=== PATIENT | male | born 1965 | race Caucasian/White ===

== ENCOUNTER 2017-09-05 08:25 | Inpatient (IN) | payer OTHER ==
[~2017-09-05] VITALS: Ht 177.8 cm; Wt 111.6 kg
[2017-09-05 08:25] VITALS: BP_SYST 149
--- NOTE | 2017-09-05 08:25 | NUR ---
BROUGHT BACK TO BED #8 AND REPORT GIVEN TO EUGENE
--- NOTE | 2017-09-05 08:27 | NUR ---
ER at bedside examining patient.
--- NOTE | 2017-09-05 08:30 | NUR ---
Pt presents to ER c/o "stroke-like symptoms" that occured yesterday around 0500. Pt states that he was talking to niece at dinner table when he began to drool, slur his words, and feel numbness in his L arm. Pt states that the symptoms eventually went away as the day progressed. Pt denies CP, SOB, N/V/D. pt reports 3 previous heart attacks, most recently in 2014. Pt reports medical history of HTN, HYPERLIPIDEMIA, ANXIETY, DEPRESSION but states that he does not take any meds. Pt is in no acute distress, denies pain at the moment, lung sounds clear, AOX4, NKDA.
[2017-09-05] MEDS ORDERED: ASPIRIN 81 MG TAB.CHEW PO ONE (08:45)
--- NOTE | 2017-09-05 08:50 | NUR ---
Laboratory at bedside for blood draw.
[2017-09-05] MEDS ORDERED: ASPIRIN 81 MG TAB.CHEW ONE (09:10)
--- NOTE | 2017-09-05 09:10 | NUR ---
Pt administered 162 mg of Aspirin. Pt tolerated well. Will continue to monitor.
--- NOTE | 2017-09-05 09:10 | NUR ---
Radiology at bedside for CXR.
[2017-09-05 09:11] LABS: BASOPHILS % (AUTO) 0.3 % (0.0-2.0); EOSINOPHILS # (AUTO) 0.3 K/uL (0.0-0.4); EOSINOPHILS % (AUTO) 3.3 % (0.0-4.0); HEMATOCRIT 45.3 % (36-54); HEMOGLOBIN 14.8 g/dL (14.0-18.0); LYMPHOCYTES # (AUTO) 2.7 K/uL (1.0-5.5); LYMPHOCYTES % (AUTO) 31.2 % (20.5-51.5); MEAN CORPUSCULAR HEMOGLOBIN 30 pg (27-31); MEAN CORPUSCULAR HGB CONC 33 % (32-36); MEAN CORPUSCULAR VOLUME 92 fL (79.0-98.0); MONOCYTES # (AUTO) 0.5 K/uL (0.0-1.0); MONOCYTES % (AUTO) 6.2 % (1.7-9.3); NEUTROPHILS # (AUTO) 5.1 K/uL (1.8-7.7); PLATELET COUNT (AUTO) 187 K/uL (130-430); RED BLOOD CELL COUNT(AUTO) 4.93 MIL/uL (4.2-6.2); RED CELL DISTRIBUTION WIDTH 12.3 % (9.0-15.0); WHITE BLOOD COUNT (AUTO) 8.6 K/uL (4.8-10.8)
[2017-09-05 09:14] LABS: BILIRUBIN,URINE NEGATIVE (NEGATIVE); BLOOD, URINE NEGATIVE (NEGATIVE); CLARITY/URINE CLEAR (CLEAR); COLOR,URINE YELLOW (YELLOW); GLUCOSE,URINE TRACE (NEGATIVE); KETONES,URINE NEGATIVE (NEGATIVE); LEUKOCYTE ESTERASE ,URINE NEGATIVE (NEGATIVE); NITRITE, URINE NEGATIVE (NEGATIVE); PH,URINE 5.5 (5.0-8.0); PROTEIN URINE NEGATIVE (NEGATIVE); UROBILINOGEN,URINE 0.2 (0.2-1.0)
--- NOTE | 2017-09-05 09:23 | NUR ---
EKG performed at by Farhad EID. Physician given copy of EKG for review.
[2017-09-05 09:24] LABS: CALCIUM 8.6 mg/dL (8.4-11.0); CREATININE 1.25 mg/dL (0.55-1.30); POTASSIUM 3.8 mmol/L (3.5-5.1)
--- NOTE | 2017-09-05 09:27 | NUR ---
Patient transported to radiology via wheelchair, accompanied by rad staff.
[2017-09-05 09:28] LABS: ALBUMIN 3.4 g/dL (3.4-4.8); PROTHROMBIN TIME 10.3 SECS (9.5-12.5); TOTAL BILIRUBIN 0.3 mg/dL (0.0-1.0)
--- NOTE | 2017-09-05 09:45 | NUR ---
Returned from radiology, back to [facility].
--- NOTE | 2017-09-05 10:30 | NUR ---
Dr. Jones at bedside updating pt with lab and diagnostic results.
--- NOTE | 2017-09-05 10:56 | NUR ---
ADMIT NOTE Received pt from ER to the floor with a diagnosis of tia. Admission process initiated. patient oriented to pain management, safety and call light-teach back done.
--- NOTE | 2017-09-05 11:00 | NUR ---
Patient will be admitted to care of . Admitted to tele unit. Will go to room 135. Belongings list completed. Summary report printed. Report will be given at bedside.
[2017-09-05 11:02] VITALS: BP_SYST 131
[2017-09-05] MEDS ORDERED: ONDANSETRON HCL 4 MG/2 ML VIAL IVP PRN (12:00)
[2017-09-05] MEDS ORDERED: MUPIROCIN 2% TOPICAL OINTMENT 22 GM NS PRN (12:00)
[2017-09-05] MEDS ORDERED: DOCUSATE SODIUM 100 MG CAPSULE PO PRN (12:00)
[2017-09-05] MEDS ORDERED: MORPHINE 2 MG/ML INJ. SYRINGE IVP PRN (12:00)
[2017-09-05] MEDS ORDERED: MAGNESIUM SULFATE 50 ML IV PRN (12:00)
[2017-09-05] MEDS ORDERED: ACETAMINOPHEN 325 MG TABLET PO PRN (12:00)
[2017-09-05] MEDS ORDERED: LORazepam 2 MG/ML VIAL IVP PRN (12:00)
[2017-09-05] MEDS ORDERED: ZOLPIDEM TARTRATE 5 MG TABLET PO PRN (12:00)
[2017-09-05] MEDS ORDERED: POTASSIUM CHLORIDE 20 MEQ TAB.PRT.SR PO PRN (12:00)
--- NOTE | 2017-09-05 13:00 | NUR ---
rounds was admitted with tia in room 114 a. awake alert with ivl on the r ac intact. no infiltration noted.denies any dizziness and headache at this time. no c/o numbness .resp easy and unlabored and no acute distress noted. call light within reached and knows when to call for assistance. will continue to monitor patient.
[2017-09-05] MEDS: NACL 0.9% 1,000 ML IV SCH (13:51)
--- NOTE | 2017-09-05 14:00 | NUR ---
rounds ivf started and no infiltration noted. call light within reached. sleeps at intervals.
[2017-09-05 15:00] VITALS: BP_SYST 120
--- NOTE | 2017-09-05 18:45 | NUR ---
closing notes resting comfortably in bed. no sob noted. call light within reached. no numbness noted. bed in low position
[2017-09-05 20:00] VITALS: BP_SYST 128
[2017-09-05] MEDS: HEPARIN SODIUM,PORCINE 5000 UNITS/ML VIAL SUBCUT SCH (22:11)
[2017-09-05] MEDS ORDERED: HEPARIN SODIUM,PORCINE 5000 UNITS/ML VIAL ONE (22:15)
--- NOTE | 2017-09-06 04:52 | NUR ---
CONSULT REASON NEURO FOR DOCTOR Annie LOPEZ SPOKE WITH MIGUELINA
[2017-09-06] MEDS: NACL 0.9% 1,000 ML IV SCH ×3 (05:55→22:28)
--- NOTE | 2017-09-06 06:05 | NUR ---
Closing note pt awake alert. Pt complain of right leg pain. Pt stated feel stiff or some sharp pain. 6/10 when move. non labored breathing. No distress noted. Safety precaution maintained throughout the shift. Bed in the lowest positioned, locked. Hourly rounds does, comfort needs met throughout the shift. will endorse to the day shift nurse to notify MD regarding pt's pain on the right calf.
[2017-09-06] MEDS ORDERED: FLU VACC QS 2017-18(36MOS+)/PF 0.5 ML/SYR SYRINGE I.M. PRN (06:45)
--- NOTE | 2017-09-06 06:50 | NUR ---
Pt requested to obtain flu vaccination prior to discharge
[2017-09-06 07:40] LABS: BASOPHILS % (AUTO) 0.5 % (0.0-2.0); EOSINOPHILS # (AUTO) 0.3 K/uL (0.0-0.4); EOSINOPHILS % (AUTO) 3.2 % (0.0-4.0); HEMATOCRIT 45.3 % (36-54); LYMPHOCYTES # (AUTO) 2.5 K/uL (1.0-5.5); LYMPHOCYTES % (AUTO) 26.5 % (20.5-51.5); MEAN CORPUSCULAR HEMOGLOBIN 30 pg (27-31); MEAN CORPUSCULAR HGB CONC 33 % (32-36); MEAN CORPUSCULAR VOLUME 91 fL (79.0-98.0); MONOCYTES # (AUTO) 0.5 K/uL (0.0-1.0); MONOCYTES % (AUTO) 5.7 % (1.7-9.3); NEUTROPHILS # (AUTO) 6.1 K/uL (1.8-7.7); NEUTROPHILS % (AUTO) 64.1 % (40.0-70.0); PLATELET COUNT (AUTO) 185 K/uL (130-430); RED BLOOD CELL COUNT(AUTO) 4.98 MIL/uL (4.2-6.2); RED CELL DISTRIBUTION WIDTH 12.4 % (9.0-15.0); WHITE BLOOD COUNT (AUTO) 9.4 K/uL (4.8-10.8)
--- NOTE | 2017-09-06 07:51 | NUR ---
OPENING NOTE: RECEIVED REPORT FROM NIGHT NURSE. PATIENT IS RESTING COMFORTABLY IN BED. NO SIGNS OR SYMPTOMS OF DISTRESS OR SOB. IV IS PATENT AND INFUSING. PATIENT ON ROOM AIR. PATIENT IS ALERT AND ORIENTED, ABLE TO EXPRESS NEEDS, AND ASK FOR ASSISTANCE. CALL LIGHT IN REACH, BED IN LOWEST POSITION, AND WILL CONTINUE TO MONITOR.
[2017-09-06 08:00] LABS: CREATININE 0.87 mg/dL (0.55-1.30); POTASSIUM 3.9 mmol/L (3.5-5.1)
[2017-09-06 08:32] VITALS: BP_SYST 133
[2017-09-06] MEDS: HEPARIN SODIUM,PORCINE 5000 UNITS/ML VIAL SUBCUT SCH ×2 (09:15→22:28)
--- NOTE | 2017-09-06 10:00 | NUR ---
NOTE: PATIENT IS RESTING COMFORTABLY IN BED. NO S/S OF DISTRESS OR SOB. PATIENT IS ALERT AND ORIENTED, ABLE TO EXPRESS NEEDS, AND ASK FOR ASSISTANCE. CALL LIGHT IN REACH, BED IN LOWEST POSITION, AND WILL TO MONITOR.
[2017-09-06 11:27] VITALS: BP_SYST 140
[2017-09-06 12:28] LABS: BARBITURATE, URINE NEGATIVE (NEG <=200); BENZODIAZEPINE, URINE NEGATIVE (NEG <=150); CANNABINOID, URINE POSITIVE (NEG <=50); COCAINE, URINE NEGATIVE (NEG <=150); METHAMPHETAMINES SCREEN,URINE NEGATIVE (NEG <=500); OPIATE, URINE NEGATIVE (NEG <=100); PHENCYCLIDINE SCREEN,URINE NEGATIVE (NEG <=25); UR TRICYCLIC ANTIDEPRESSANTS NEGATIVE (NEG <=300); URINE AMPHETAMINE NEGATIVE (NEG <=500); URINE METHADONE NEGATIVE (NEG <=200); URINE OXYCODONE SCREEN NEGATIVE (NEG <=100); URINE PROPOXYPHENE SCREEN NEGATIVE (NEG <=300)
--- NOTE | 2017-09-06 12:30 | NUR ---
NOTE: PATIENT IS RESTING COMFORTABLY IN BED. NO S/S OF DISTRESS OR SOB. PATIENT FAMILY IS VISITING. EATING LUNCH. NO NEEDS AT THIS TIME. CALL LIGHT IN REACH, BED IN LOWEST POSITION, AND WILL CONTINUE TO MONITOR.
--- NOTE | 2017-09-06 14:30 | NUR ---
NOTE: PATIENT IS RESTING COMFORTABLY IN BED. NO S/S OF DISTRESS OR SOB. PATIENT IS ALERT AND ORIENTED, ABLE TO EXPRESS NEEDS AND ASK FOR ASSISTANCE. PATIENT STATED THAT HE WANTS TO SHOWER, INFORMED THAT DR. SPARKS NEEDS TO GIVE THE OKAY TO BE OFF TELEMETRY FOR A DURATION. WAITING FOR CALL BACK FROM DR. SPARKS. CALL LIGHT IN REACH, BED IN LOWEST POSITION, AND WILL CONTINUE TO MONITOR.
[2017-09-06 15:28] VITALS: BP_SYST 143
--- NOTE | 2017-09-06 16:14 | NUR ---
NOTE: PATIENT IS RESTING COMFORTABLY IN BED. NO S/S OF DISTRESS OR SOB. PATIENT IS ALERT AND ORIENTED, ABLE TO EXPRESS NEEDS, AND ASK FOR ASSISTANCE. NO NEEDS EXPRESSED AT THIS TIME. CALL LIGHT IN REACH, BED IN LOWEST POSITION, AND WILL CONTINUE TO MONITOR.
--- NOTE | 2017-09-06 16:44 | NUR ---
PATIENT TAKING A SHOWER
--- NOTE | 2017-09-06 18:29 | NUR ---
CLOSING NOTE: PATIENT IS RESTING COMFORTABLY IN BED. NO S/S OF DISTRESS OR SOB. PATIENT IS ALERT AND ORIENTED, ABLE TO EXPRESS NEEDS, AND ASK FOR ASSISTANCE. ALL NEEDS MET DURING SHIFT. IV IS PATENT AND INFUSING. NO NEEDS ADDRESSED AT THIS TIME. CALL LIGHT IN REACH, BED IN LOWEST POSITION, AND WILL GIVE REPORT TO NIGHT NURSE.
--- NOTE | 2017-09-06 19:25 | NUR ---
PM SHIFT ASSESSMENT Pt A&OX4. RA, no signs of SOB or acute distress noted. IV to RAC 20G, no signs of infiltration noted. Pt educated on how to use the call light. Safety precautions in place, will continue to monitor.
[2017-09-06 20:00] VITALS: BP_SYST 127
--- NOTE | 2017-09-07 00:10 | NUR ---
Pt resting in bed. VSS. No signs of SOB or acute distress noted. Will continue to monitor.
--- NOTE | 2017-09-07 05:20 | NUR ---
Checklist done by pt for MRI to be done today.
--- NOTE | 2017-09-07 07:31 | NUR ---
ENDORSEMENT Pt care endorsed to day shift RN at bedside using nursing SBAR.
--- NOTE | 2017-09-07 08:00 | NUR ---
Paged neurologist Paged DR. JESSICA GARCIA for carotid US report
[2017-09-07 08:07] VITALS: BP_SYST 130
[2017-09-07] MEDS: HEPARIN SODIUM,PORCINE 5000 UNITS/ML VIAL SUBCUT SCH (08:10)
--- NOTE | 2017-09-07 08:20 | NUR ---
Patient complaining of left leg pain , no edema , dorsalis pedis pulse positive ,with good peripheral sensation , Dr. sravan verma
--- NOTE | 2017-09-07 08:32 | NUR ---
NEUROLOGIST, DR LOPEZ WAS CALLED RE: US CAROTID RESULT. SPOKE TO BILL
[2017-09-07 08:43] LABS: BASOPHILS % (AUTO) 0.4 % (0.0-2.0); EOSINOPHILS # (AUTO) 0.2 K/uL (0.0-0.4); EOSINOPHILS % (AUTO) 2.3 % (0.0-4.0); HEMATOCRIT 50.2 % (36-54); LYMPHOCYTES # (AUTO) 2.1 K/uL (1.0-5.5); LYMPHOCYTES % (AUTO) 23.2 % (20.5-51.5); MEAN CORPUSCULAR HEMOGLOBIN 30 pg (27-31); MEAN CORPUSCULAR HGB CONC 32 % (32-36); MEAN CORPUSCULAR VOLUME 93 fL (79.0-98.0); MONOCYTES # (AUTO) 0.5 K/uL (0.0-1.0); MONOCYTES % (AUTO) 5.9 % (1.7-9.3); NEUTROPHILS # (AUTO) 6.1 K/uL (1.8-7.7); NEUTROPHILS % (AUTO) 68.2 % (40.0-70.0); PLATELET COUNT (AUTO) 201 K/uL (130-430); RED BLOOD CELL COUNT(AUTO) 5.38 MIL/uL (4.2-6.2); RED CELL DISTRIBUTION WIDTH 12.2 % (9.0-15.0); WHITE BLOOD COUNT (AUTO) 8.9 K/uL (4.8-10.8)
[2017-09-07 08:56] LABS: CALCIUM 9.7 mg/dL (8.4-11.0); CREATININE 0.92 mg/dL (0.55-1.30); POTASSIUM 4.1 mmol/L (3.5-5.1)
--- NOTE | 2017-09-07 09:10 | NUR ---
MADE A F/U CALL TO DR LOPEZ. SPOKE TO SATINDER
--- NOTE | 2017-09-07 09:40 | NUR ---
Rounds Discussed to patient plan care result of carotid US,checklist/consent completed after explaining the test , venous Doppler for pain left calf and agreed , instructed avoid crossing legs , safety , weight gain verbalized understanding.
[2017-09-07 11:24] VITALS: BP_SYST 130
[2017-09-07] MEDS ORDERED: *LOVENOX 1MG/KG Q12H/PHARMACY XX ONE (11:30)
[2017-09-07] MEDS ORDERED: IOHEXOL 100 ML IV ONE (11:32)
--- NOTE | 2017-09-07 12:40 | NUR ---
MRI/CT angiogram of the neck completed , no sign of neurological deficit clear speech , no dizziness.
--- NOTE | 2017-09-07 13:26 | NUR ---
Dr. Mukul evrma for CT angiogram of the neck /MRI result.
[2017-09-07] MEDS: ENOXAPARIN SODIUM 100 MG/ML SYRINGE SUBCUT SCH (14:56)
--- NOTE | 2017-09-07 15:00 | NUR ---
Flu vaccine explained , risk/benefits , after effect of medication , no allergies to egg ,administered to left deltoid.
[2017-09-07 15:22] VITALS: BP_SYST 131
[2017-09-07] MEDS: MORPHINE 2 MG/ML INJ. SYRINGE IVP PRN (17:30)
--- NOTE | 2017-09-07 17:30 | NUR ---
Venous Doppler of upper extremities and jugular area completed waiting for final result , complaining of left leg pain 8/10 due pain medication given will continue to monitor ; Dr. Song in in the hospital making rounds informed regarding result MRI, CT angiogram , venous Doppler, will continue to monitor.
--- NOTE | 2017-09-07 19:15 | NUR ---
Patient resting left leg pain is better after pain medication , endorsed to RAGINI barrera to call Dr. Gilman once the final reading of Ultrasound venous Doppler of BUE and jugular vein.
[2017-09-07 20:00] VITALS: BP_SYST 121
--- NOTE | 2017-09-07 20:00 | NUR ---
AWAKE, ALERT, ORIENTED X4. IN NO APPARENT DISTRESS. VSS. DENIES PAIN AT THIS TIME. PEDAL PULSES PALPABLE, ABLE TO WIGGLE TOES, FEET WARM TO TOUCH. PLEASANT. SR.
--- NOTE | 2017-09-08 | NUR ---
DOZES ON AND OFF. ABLE TO TURN SELF WITHOUT DIFFICULTY. DENIES PAIN/SOB/DISTRESS. NO REPORT YET ON VENOUS DOPPLER SCAN.
[2017-09-08 00:28] VITALS: BP_SYST 137
[2017-09-08] MEDS: ENOXAPARIN SODIUM 100 MG/ML SYRINGE SUBCUT SCH ×2 (02:51→14:02)
--- NOTE | 2017-09-08 03:00 | NUR ---
EASILY AWAKENED FOR SCHEDULED LOVENOX 100MG SHOT. TURNS SELF WELL. STILL NO REPORT ON VENOUS DOPPLER STUDY.
--- NOTE | 2017-09-08 06:00 | NUR ---
SLEPT WELL MOST OF SHIFT. DENIES PAIN,DISTRESS, SOB. REMAINS IN GUARDED CONDITION.
--- NOTE | 2017-09-08 06:41 | NUR ---
NO REPORT YET ON VENOUS DOPPLER STUDY.
[2017-09-08 07:06] LABS: BASOPHILS % (AUTO) 0.4 % (0.0-2.0); EOSINOPHILS # (AUTO) 0.1 K/uL (0.0-0.4); EOSINOPHILS % (AUTO) 1.3 % (0.0-4.0); HEMATOCRIT 50.2 % (36-54); HEMOGLOBIN 16.7 g/dL (14.0-18.0); LYMPHOCYTES # (AUTO) 2.2 K/uL (1.0-5.5); MEAN CORPUSCULAR HEMOGLOBIN 31 pg (27-31); MEAN CORPUSCULAR HGB CONC 33 % (32-36); MEAN CORPUSCULAR VOLUME 92 fL (79.0-98.0); MONOCYTES # (AUTO) 0.7 K/uL (0.0-1.0); MONOCYTES % (AUTO) 5.9 % (1.7-9.3); NEUTROPHILS # (AUTO) 8.1 K/uL (1.8-7.7); NEUTROPHILS % (AUTO) 72.4 % (40.0-70.0); PLATELET COUNT (AUTO) 222 K/uL (130-430); RED BLOOD CELL COUNT(AUTO) 5.47 MIL/uL (4.2-6.2); RED CELL DISTRIBUTION WIDTH 12.5 % (9.0-15.0); WHITE BLOOD COUNT (AUTO) 11.1 K/uL (4.8-10.8)
[2017-09-08] MEDS ORDERED: KETOROLAC TROMETHAMINE 15 MG VIAL IVP PRN (07:15)
[2017-09-08] MEDS ORDERED: KETOROLAC TROMETHAMINE 15 MG VIAL IVP ONE (07:15)
[2017-09-08 07:22] LABS: CALCIUM 9.6 mg/dL (8.4-11.0); CREATININE 0.92 mg/dL (0.55-1.30)
--- NOTE | 2017-09-08 07:30 | NUR ---
ASSUMPTION OF CARE RECEIVED REPORT FROM LEN EID. PT IN BED AAOx4, ABLE TO VERBALIZE NEEDS. VSS, SR ON MONITOR, NO SIGNS DISTRESS NOTED. 20G RIGHT AC IV SALINE LOCK. PT C/O 04/27 PAIN TO LEFT LEG. PT STATES HE STILL HAS SOME NUMBNESS IN LEFT ARM AND LEFT LEG. WILL ADMINISTER TORADOL PER ORDERS BY DR VILLAR. HOB ELEVATED, BED LOCKED AND IN LOWEST POSITION, CALL LIGHT IN REACH. WILL CONTINUE TO MONITOR.
[2017-09-08 08:00] VITALS: BP_SYST 135
[2017-09-08] MEDS: GABAPENTIN 300 MG CAPSULE PO SCH ×3 (08:03→20:40)
--- NOTE | 2017-09-08 09:59 | NUR ---
ROUNDS PT AWAKE IN BED TALKING ON PHONE. NO SIGNS DISTRESS NOTED. PT DENIES PAIN AT THIS TIME. WILL CONTINUE TO MONITOR.
--- NOTE | 2017-09-08 11:55 | NUR ---
ROUNDS PT IN BED WITH EYES CLOSED, RISE AND FALL OF CHEST NOTED. NO SIGNS DISTRESS NOTED. WILL CONTINUE TO MONITOR.
[2017-09-08 12:03] VITALS: BP_SYST 116
--- NOTE | 2017-09-08 13:45 | NUR ---
ROUNDS PT SITTING UP IN BED USING CELL PHONE. NO SIGNS DISTRESS NOTED. PT PLEASANT, TALKATIVE. PT STATES HE HAS LEFT LEG PAIN 5/10 AT THIS TIME, PT STATES PAIN IS TOLERABLE BUT WOULD LIKE TORADOL AGAIN. WILL ADMINISTER IVP TORADOL PER ORDERS BY DR VILLAR. WILL CONTINUE TO MONITOR.
--- NOTE | 2017-09-08 15:51 | NUR ---
ROUNDS PT AWAKE IN BED WATCHING TV. PT STATES LEFT LEG PAIN HAS DECREASED AND IS AT A TOLERABLE LEVEL NOW. NO SIGNS DISTRESS NOTED. WILL CONTINUE TO MONITOR.
[2017-09-08 16:24] VITALS: BP_SYST 125
--- NOTE | 2017-09-08 18:07 | NUR ---
END OF SHIFT PT LYING IN BED AWAKE, USING CELL PHONE. NO SIGNS DISTRESS NOTED, SR ON MONITOR. PT STATES LEFT LEG PAIN 2/10, TOLERABLE LEVEL PER PT AND DOES NOT WANT PAIN MEDICATION AT THIS TIME. PT ENCOURAGED TO NOTIFY RN IF PAIN INCREASES. 20G RIGHT AC IV SALINE LOCK. BED LOCKED AND IN LOWEST POSITION, CALL LIGHT IN REACH.
[2017-09-08 20:00] VITALS: BP_SYST 129
--- NOTE | 2017-09-08 20:05 | NUR ---
PM OPENING NOTES PATIENT ON BED, AWAKE, ALERT AND VERBALLY RESPONSIVE ON HIS CELLPHONE AT THIS TIME. NO SIGN OF RESPIRATORY DISTRESS AND NO COMPLAIN OF PAIN OR DISCOMFORT AT THIS TIME. IV SALINE LOCK ON RIGHT ANTECUBITAL IS INTACT WITH NO S/SX. OF INFILTRATION AT THIS TIME. WILL CONTINUE TO MONITOR. CALL LIGHT WITHIN REACH.
--- NOTE | 2017-09-08 22:04 | NUR ---
ROUNDS NOTES PATIENT ON BED SLEEPING WITH NO SIGN OF RESPIRATORY DISTRESS AND NO COMPLAIN OF PAIN AT THIS TIME. WILL CONTINUE TO MONITOR. CALL LIGHT WITHIN REACH.
[2017-09-09] VITALS: BP_SYST 122
--- NOTE | 2017-09-09 00:05 | NUR ---
ROUNDS NOTES PATIENT ON BED, SLEEPING WITH NO SIGN OF RESPIRATORY DISTRESS AND NO COMPLAIN OF PAIN OR DISCOMFORT AT THIS TIME. WILL CONTINUE TO MONITOR. CALL LIGHT WITHIN REACH.
[2017-09-09] MEDS: ENOXAPARIN SODIUM 100 MG/ML SYRINGE SUBCUT SCH (02:04)
--- NOTE | 2017-09-09 02:05 | NUR ---
ROUNDS NOTES PATIENT ON BED STILL SLEEPING WITH NO SIGN OF RESPIRATORY DISTRESS AND NO COMPLAIN OF PAIN AT THIS TIME. WILL CONTINUE TO MONITOR.
--- NOTE | 2017-09-09 04:04 | NUR ---
ROUNDS NOTES PATIENT ON BED STILL SLEEPING WITH NO SIGN OF RESPIRATORY DISTRESS AND NO COMPLAIN OF PAIN AT THIS TIME. WILL CONTINUE TO MONITOR.
--- NOTE | 2017-09-09 06:04 | NUR ---
ROUNDS NOTES PATIENT STILL SLEEPING WITH NO SIGN OF RESPIRATORY DISTRESS AND NO COMPLAIN OF PAIN AT THIS TIME. WILL CONTINUE TO MONITOR. CALL LIGHT WITHIN REACH.
--- NOTE | 2017-09-09 07:04 | NUR ---
CLOSING NOTES PATIENT ON BED STILL SLEEPING WITH NO SIGN OF RESPIRATORY DISTRESS AND NO COMPLAIN OF PAIN AT THIS TIME. ALL NEEDS ATTENDED AND CALL LIGHT WITHIN SHIFT.
[2017-09-09 07:05] LABS: BASOPHILS % (AUTO) 0.4 % (0.0-2.0); EOSINOPHILS # (AUTO) 0.3 K/uL (0.0-0.4); HEMATOCRIT 50.4 % (36-54); HEMOGLOBIN 16.8 g/dL (14.0-18.0); LYMPHOCYTES # (AUTO) 2.5 K/uL (1.0-5.5); LYMPHOCYTES % (AUTO) 27.6 % (20.5-51.5); MEAN CORPUSCULAR HEMOGLOBIN 31 pg (27-31); MEAN CORPUSCULAR HGB CONC 33 % (32-36); MEAN CORPUSCULAR VOLUME 92 fL (79.0-98.0); MONOCYTES # (AUTO) 0.9 K/uL (0.0-1.0); MONOCYTES % (AUTO) 10.1 % (1.7-9.3); NEUTROPHILS # (AUTO) 5.2 K/uL (1.8-7.7); NEUTROPHILS % (AUTO) 58.9 % (40.0-70.0); PLATELET COUNT (AUTO) 227 K/uL (130-430); RED BLOOD CELL COUNT(AUTO) 5.46 MIL/uL (4.2-6.2); RED CELL DISTRIBUTION WIDTH 12.3 % (9.0-15.0); WHITE BLOOD COUNT (AUTO) 8.9 K/uL (4.8-10.8)
--- NOTE | 2017-09-09 07:30 | NUR ---
ASSUMPTION OF CARE RECEIVED REPORT FROM GIANCARLO EID. PT IN BED AAOx4, ABLE TO VERBALIZE NEEDS. NO SIGNS DISTRESS NOTED. O2 SAT 95% ON ROOM AIR, PT DENIES SHORTNESS OF BREATH/DIFFICULTY BREATHING. SCDs IN USE. 20G RIGHT AC IV SALINE LOCK. PT STATES HE HAS SOME PAIN IN LEFT LEG BUT IT IS TOLERABLE PER PT AND DOES NOT WANT PAIN MEDICATIONS AT THIS TIME. BED LOCKED AND IN LOWEST POSITION, CALL LIGHT IN REACH. WILL CONTINUE TO MONITOR.
[2017-09-09 07:32] LABS: CALCIUM 9.6 mg/dL (8.4-11.0); CREATININE 1.06 mg/dL (0.55-1.30); POTASSIUM 4.1 mmol/L (3.5-5.1)
[2017-09-09 07:53] VITALS: BP_SYST 102
[2017-09-09] MEDS: GABAPENTIN 300 MG CAPSULE PO SCH (08:01)
[2017-09-09 09:36] VITALS: BP_SYST 137
[2017-09-09] MEDS: MORPHINE 2 MG/ML INJ. SYRINGE IVP PRN (09:44)
--- NOTE | 2017-09-09 10:10 | NUR ---
ROUNDS PT AWAKE IN BED WATCHING TV. NO SIGNS DISTRESS NOTED. WILL CONTINUE TO MONITOR.
[2017-09-09] MEDS ORDERED: APIX5TAB PO (11:22)
[2017-09-09] MEDS ORDERED: ASPI-1063 PO (11:22)
[2017-09-09] MEDS ORDERED: SIMV40TA2 PO (11:22)
[2017-09-09] MEDS ORDERED: GABA-531 PO (11:22)
--- NOTE | 2017-09-09 11:58 | NUR ---
Discharge Planning Received order for home health PT. Patient to be discharged home today with MD instructions to f/u with PCP. Order faxed to [facility] for home health PT. Will leave message for DC site planner to f/u on Monday with medical group.
--- NOTE | 2017-09-09 12:14 | NUR ---
ROUNDS PT AWAKE IN BED TALKING TO FAMILY TO NOTIFY THEM THAT HE WILL BE DISCHARGED TODAY, PT WORKING ON GETTING A RELATIVE TO COME PICK HIM UP FROM HOSPITAL WHEN HE IS DISCHARGED. NO SIGNS DISTRESS NOTED. PT DENIES PAIN AT THIS TIME. WILL CONTINUE TO MONITOR.
[2017-09-09 12:33] VITALS: BP_SYST 135
--- NOTE | 2017-09-09 13:10 | NUR ---
D/C Patient Patient given medication reconciliation form and D/C instructions. Exit Care provided. Patient verbalized understanding. MD discussed with patient the results and treatment provided. Ambulatory with steady gait for discharge to home. Patient in stable condition, ID band removed. IV catheter removed, intact and dressing applied, no active bleeding. NO Rx given. Patient educated on pain management. All belongings sent with patient.
--- NOTE | 2017-09-10 13:49 | NUR ---
DISCHARGE PLANNING Faxed home health referral to contracted [facility] [phone]. Will follow up. Addendum: 09/11/17 at 1133 by Ana Leal DP spoke with Dar in intake dept at [facility] who stated still pending insurance auth. Once insurance auth has been received will be able to scheduled home health nurse to see patient. Called insurance regional rehabilitation director [phone], recording says office currently closed, Call was transferred, spoke with Apple who will follow up. Apple made aware [facility] accepted patient pending insurance auth. Apple will return call back to [facility]. Addendum: 09/11/17 at 1137 by Ana Leal DP spoke with Apple at [facility] who stated insurance auth#[id number] for home health and will inform Dar at [facility] so that patient can be called to make visit arrangements.
== END 2017-09-09 13:15 | disposition home or self-care (01) | DRG 45 ==
LOC: SED 08:25 → STU 10:18
PROVIDERS: ADMIT General Practice; ATTEND General Practice
DX: I63.9 Cerebral infarction, unspecified (principal); I82.622 Acute embolism and thrombosis of deep veins of left upper extremity; G81.94 Hemiplegia, unspecified affecting left nondominant side; R47.01 Aphasia; I10 Essential (primary) hypertension; F12.20 Cannabis dependence, uncomplicated; F17.200 Nicotine dependence, unspecified, uncomplicated; G90.8 Other disorders of autonomic nervous system; G62.9 Polyneuropathy, unspecified; Z98.61 Coronary angioplasty status; Z87.828 Personal history of other (healed) physical injury and trauma; Z91.19 Patient's noncompliance with other medical treatment and regimen; I25.2 Old myocardial infarction
CPT/HCPCS: 36415; 70450-TC; 70498; 70551; 71010; 80048; 80053; 80061; 80307; 81003; 83735-TC; 83880; 84484; 85025; 85610-TC; 85730-TC; 93005; 93880; 93970; 93971; 95816; 97116-GP; 99285; J1644; J1650; J1885; J2270; J7030; Q2037; Q9967

== ENCOUNTER 2017-10-04 22:41 | Emergency (ER) | payer MEDICAID, OTHER ==
[~2017-10-04] VITALS: Ht 177.8 cm; Wt 111.6 kg
[2017-10-04 22:41] VITALS: BP_SYST 139
[~2017-10-04 22:41] MED LIST: APIX5TAB PO; ASPI-1063 PO; GABA-531 PO; SIMV40TA2 PO
--- NOTE | 2017-10-04 22:41 | NUR ---
Pt ambulatory to bed 6 for evaluation
--- NOTE | 2017-10-04 22:41 | NUR ---
Pt ambulatory, a/o x 4, c/o pain to his left chest radiating to his left shoulder down to his left arm x 2 hrs. Pt described pain as sharp, 9/10 ps. Pt has not taken any medication to relieve symptoms. Pt afebrile,denied headache, dizziness, nausea, vomiting, abdominal pain. Pt with normal respiratory, lungs cta. Pt hooked to transformation consultant, made comfortable in bed.
--- NOTE | 2017-10-04 22:42 | NUR ---
ER at bedside examining patient.
[2017-10-04 23:15] LABS: BASOPHILS # (AUTO) 0.1 K/uL (0.0-0.2); BASOPHILS % (AUTO) 0.9 % (0.0-2.0); EOSINOPHILS # (AUTO) 0.2 K/uL (0.0-0.4); EOSINOPHILS % (AUTO) 2.5 % (0.0-4.0); HEMATOCRIT 46.2 % (36-54); HEMOGLOBIN 15.2 g/dL (14.0-18.0); LYMPHOCYTES # (AUTO) 3.3 K/uL (1.0-5.5); LYMPHOCYTES % (AUTO) 34.7 % (20.5-51.5); MEAN CORPUSCULAR HEMOGLOBIN 30 pg (27-31); MEAN CORPUSCULAR HGB CONC 33 % (32-36); MEAN CORPUSCULAR VOLUME 91 fL (79.0-98.0); MONOCYTES # (AUTO) 0.8 K/uL (0.0-1.0); MONOCYTES % (AUTO) 8.1 % (1.7-9.3); NEUTROPHILS % (AUTO) 53.8 % (40.0-70.0); PLATELET COUNT (AUTO) 241 K/uL (130-430); RED BLOOD CELL COUNT(AUTO) 5.07 MIL/uL (4.2-6.2); RED CELL DISTRIBUTION WIDTH 13.1 % (9.0-15.0); WHITE BLOOD COUNT (AUTO) 9.4 K/uL (4.8-10.8)
[2017-10-04] MEDS: ASPIRIN 81 MG TAB.CHEW PO ONE (23:20)
[2017-10-04] MEDS: NITROGLYCERIN 1 INCH (GM) OINT. TP ONE (23:23)
[2017-10-04 23:25] LABS: ANION GAP 6 (5-15); CALCIUM 9.3 mg/dL (8.4-11.0); CHLORIDE 104 mmol/L (98-107); CREATININE 1.01 mg/dL (0.55-1.30); GLUCOSE 123 mg/dL (70-99); POTASSIUM 3.8 mmol/L (3.5-5.1); SODIUM SERUM 136 mmol/L (136-145); UREA NITROGEN, BLOOD 18 mg/dL (8-21)
[2017-10-04 23:26] LABS: GFR AFRICAN AMERICAN 100 mL/min (>90)
--- NOTE | 2017-10-04 23:28 | NUR ---
# 20 gauge angiocath placed to LAC. Use of asceptic technique. Opsite placed over site. Blood return noted. Flushed with 10 cc of normal saline. No evidence of infiltration noted. Patient tolerated well.
[2017-10-04 23:33] LABS: PROTHROMBIN TIME 10.2 SECS (9.5-12.5)
[2017-10-04 23:34] LABS: ALANINE AMINOTRANSFERASE 30 U/L (12-78); ALBUMIN 3.2 g/dL (3.4-4.8); ASPARTATE AMINOTRANSFERASE 14 U/L (10-37); TOTAL BILIRUBIN 0.3 mg/dL (0.0-1.0)
[2017-10-04] MEDS: NACL 0.9% 1,000 ML IV ONE (23:34)
[2017-10-04] MEDS: KETOROLAC TROMETHAMINE 30 MG VIAL IVP ONE (23:35)
--- NOTE | 2017-10-05 00:30 | NUR ---
Patient resting quietly. No acute distress noted. Vital signs within normal range.
[2017-10-05 01:27] VITALS: BP_SYST 103
--- NOTE | 2017-10-05 01:27 | NUR ---
Patient given written and verbal discharge instructions and verbalizes understanding. ER MD discussed with patient the results and treatment provided. Patient in stable condition. ID arm band removed. IV catheter removed intact and dressing applied, no active bleeding. Rx of motrin 800 mg given. Patient educated on pain management and to follow up with PMD. Pain Scale 0/10 ps. Opportunity for questions provided and answered.
== END 2017-10-05 01:27 | disposition home or self-care (01) ==
LOC: SED 22:41
DX: R07.89 Other chest pain (principal); I25.2 Old myocardial infarction; I10 Essential (primary) hypertension; Z79.82 Long term (current) use of aspirin
CPT/HCPCS: 36415; 80053; 84484; 85025; 85610; 85730; 93005; 96361; 96374; 99285; J1885; J7030